=== PATIENT | female | born 1990 | race Caucasian/White ===

== ENCOUNTER 2022-01-01 12:26 | Emergency (ER) | payer BC ==
--- OUTSIDE RECORDS SUMMARY | 2022-01-01 12:29 | XMS REPORT | Continuity of Care Document ---
:1990 Author Organization [facility] Address [address] [place] [address] Care Team Providers Name Role Phone Hector RENDON Attending Clinician Unavailable Taryn RENDON, T Attending Clinician Unavailable DAGOBERTO Attending Clinician Unavailable VIRGEN Attending Clinician Unavailable Tessy RENDON Attending Clinician Unavailable VIOLETA Attending Clinician Unavailable Doctor Unassigned, Name Attending Clinician Unavailable Payers Payer Name Policy Type Policy Number Effective Date Expiration Date S ource Problems Condition Condition Condition Status Onset Resolution Last Treating Co mments Source Name Details Category Date Date Treatment Clinician Date No known No known Disease Unive rs active active ity of problems problems [facility] Allergies, Adverse Reactions, Alerts Allergy Allergy Status Severity Reaction(s) Onset Inactive Treating Comm ents Source Name Type Date Date Clinician NO KNOWN Drug Active Univers ALLERGIE Class ity of S [facility] Social History Social Habit Start Date Stop Date Quantity Comments Source Exposure to Not sure [facility] SARS-CoV-2 (event) [facility] Tobacco use and 2021-01-28 2021-01-28 Never used [facility] exposure 00:00:00 00:00:00 [facility] Sex Ass[birth year] At [birth year] [facility] 00:00:00 00:00:00 [facility] Smoking Status Start Date Stop Date Source Unknown if ever smoked [facility] Former smoker 2021-01-28 00:00:00 2021-01-28 00:00:00 [facility] Medications Ordered Filled Start Stop Current Ordering Indication Dosage Frequency Signature Comments Components Source Medication Medication Date Date Medication? Clinician (SIG) Name Name guaiFENesin Yes [id number] 400mg Take 1 Univers 400 mg 8-20 tablet by ity of tablet 00:00: mouth [place] 00 every 4 Medical (four) Branch hours as needed for Cough. benzonatate Yes [id number] 200mg Take 2 Univers 100 mg 8-20 capsules [place] of capsule [place]:00[place] ([place] Branch daily as needed for Cough. guaiFENesin 0 Yes [id number] 400mg Take 1 Univers 400 mg 8-20 tablet by ity of tablet 00:00: mouth [place] 00 every 4 Medical (four) Branch hours as needed for Cough. benzonatate 0 Yes [id number] 200mg Take 2 Univers 100 mg 8-20 capsules [place] of capsule 00:00[place] (two[place] Medical times Branch daily as needed for Cough. albuterol 0 Yes [id number] 2{puff} Inhale 2 Univers 90 8-18 Puffs ity of mcg/actuati 00:00: every 6 [place] as on inhaler 00 (six) Medical hours as Branch needed for Wheezing or Shortness of Breath. albuterol 0 Yes [id number] 2{puff} Inhale 2 Univers 90 8-18 Puffs ity of mcg/actuati 00:00: every 6 Bill as on inhaler 00 (six) Medical hours as Branch needed for Wheezing or Shortness of Breath. methylPREDN 0 Yes [id number] Take by Univers ISolone 8-17 mouth ity of (MEDROL, 00:00: SEE-INSTRU [place] as IHSAN,) 4 mg 00 CTIONS. Medica l tablets follow Branch package directions methylPREDN 2020-0 Yes [id number] Take by Univers ISolone 8-17 mouth ity of (MEDROL, 00:00: SEE-INSTRU [place] as IHSAN,) 4 mg 00 CTIONS. Medica l tablets follow Branch package directions azithromyci 0 Yes Univer s n 250 mg 8-17 ity of tablet 00:00: [place] 00 Medical Branch methylPREDN 2020-0 Yes [id number] Take by Univers ISolone 8-17 mouth ity of (MEDROL, 00:00: SEE-INSTRU Bill as IHSAN,) 4 mg 00 CTIONS. Medica l tablets follow Branch package directions azithromyci 0 Yes Univer s n 250 mg 8-17 ity of tablet 00:00: [place] 00 Medical Branch bromphenira 2020-0 2020- No [id number] 5mL Take 5 mL Univers mine-pseudo 8-17 08-28 by mouth 4 i ty of ephedrine-D 00:00: 04:59 (four) Bill as M (BROMFED 00 :00 times Medical DM) 2-30-10 daily as Bran ch mg/5 mL needed for syrup Congestion /Allergies or Cough for up to 10 days. Procedures Procedure Date / Time Performed Performing Clinician [facility] ASSIGNMENT OF BENEFITS 2021-01-25 14:36:32 Doctor Unassigned, No [facility] Encounters Start End Encounter Admission Attending Care Care Encounter Source Date/Time Date/Time Type Type Clinicians Facility Department ID 2021-02-01 2021-02-01 Letter Payton Young [id number] Univers 00:00:00 00:00:00 (Out) ELIF [id number] it [facility] [id number] Bill as [phone] [address] 2021-02-01 2021-02-01 Letter ARIELLE Centeno [id number] Univers 00:00:00 00:00:00 (Out) Rofarhat ASENCIO [id number] it y [facility] [id number] Bill as [phone] [address] 2021-01-31 2021-01-31 Outpatient [facility] [id number] Univers 13:00:00 13:00:00 [id number] [facility] 2021-01-31 2021-01-31 [facility] [id number] Univers 13:00:00 13:00:00 LEONID [facility] 2021-01-28 2021-01-28 Outpatient R [facility] [id number] Univers 09:00:00 09:00:00 [id number] [facility] 2021-01-28 2021-01-28 [facility] [id number] Univers 09:00:00 09:00:00 LEONID [facility] 2021-01-26 2021-01-26 Outpatient R [facility] [id number] Univers 17:00:00 17:00:00 [id number] y [facility] 2021-01-26 2021-01-26 Outpatient R VIRGEN [facility] [id number] Univers 17:00:00 17:00:00 BARRYSUNDARPadmini ity [facility] 2021-01-26 2021-01-26 Telephone ARIELLE Still [id number] Univers 00:00:00 00:00:00 Olga ORDAZY [id number] it y of [facility] [id number] Bill as [phone] [place] [id number] Branch 2021-01-25 2021-01-25 Out[facility] [id number] Univers 19:40:00 19:40:00 ELI salas [facility] 2021-01-25 2021-01-25 Orders Doctor ARIELLE [id number] Univers 00:00:00 00:00:00 Only Unassigned, ELIF [id number] ity of [place] [facility] [id number] Bill as [phone] [address] Results This patient has no known results.
[2022-01-01 13:11] LABS: Urine Blood Negative (Negative); Urine Glucose Negative (Negative); Urine Protein Negative (Negative); Urine Specific Gravity 1.015 (1.005-1.030); Urine pH 6.5 (5.0-7.0)
[2022-01-01] MEDS ORDERED: NA CHLORIDE 0.9% 1,000 ML ONE (13:26)
[2022-01-01] MEDS ORDERED: ACETAMINOPHEN 500 MG TAB ONE (13:26)
[2022-01-01 13:30] LABS: Urine Bacteria None Seen /HPF (<20); Urine RBC None Seen /HPF (None Seen)
[2022-01-01 13:30] LABS: Absolute Lymphocytes (CBC) 1.5 K/uL (0.7-4.9); Hematocrit 36.5 % (36.0-45.0); Lymphocytes % 21.9 % (15.3-44.8); MCV 93.3 fL (80-100); MPV 9.5 fL (7.6-11.3); RBC Red Blood Cell Count 3.92 M/uL (3.86-4.86)
[2022-01-01 13:56] LABS: Urine Specific Gravity/Preg 1.015 (1.005-1.030)
[2022-01-01 14:03] LABS: Potassium 3.7 mmol/L (3.5-5.1)
--- NOTE | 2022-01-01 15:12 | RAD REPORT ---
EXAM DESCRIPTION: US - OB Limited - 01/01/2022 2:56 pm CLINICAL HISTORY: ABD CRAMPING, age. COMPARISON: <Comparisons> FINDINGS: A single cephalic presenting gestation is identified. Heart rate normal. measurements are as follows: AC:12.5 Centimeters 18 week 1 day HL:2.5 Centimeters 17 week 5 day FL:2.3 Centimeters 16 week 5 day The estimated gestational age (EGA) is 17 week 3 day with an ALEKSANDER of06/08/2022. The placenta is anterior. No placenta previa. The maternal adnexa show no worrisome findings. The ovaries were not visualized. IMPRESSION: Single, cephalic gestation with an EGA of 17 week 3 day and an ALEKSANDER of the 06/08/2022.
--- NOTE | 2022-01-01 15:22 | EDPHYS ---
Physician Documentation [facility] Name: Viki Alexander Age: 31 yrs Sex: Female : 1990 Arrival Date: 01/01/2022 Time: 12:27 Bed 19 Private MD: ED Physician Barbi Washington HPI: 01/01 13:05 This 31 yrs old Female presents to ER via Ambulatory with complaints of Abdominal Pain, cp Abdominal Cramping - 17 wks preg. Historical: - Allergies: 12:42 No Known Allergies; ap3 - Home Meds: 12:42 None [Active]; ap3 - PMHx: 12:42 None; ap3 - PSHx: 12:42 None; ap3 - Immunization history:: Client reports having NOT received the Covid vaccine. - Social history:: Smoking status: Patient denies any tobacco usage or history of. ROS: 13:10 Constitutional: Negative for body aches, chills, fever, poor PO intake. cp 13:10 Eyes: Negative for injury, pain, redness, and discharge. cp 13:10 Cardiovascular: Negative for chest pain, palpitations. 13:10 Respiratory: Negative for cough, shortness of breath, wheezing. 13:10 Abdomen/GI: Positive for abdominal pain, of the left lower quadrant and right lower quadrant and suprapubic area, Negative for vomiting, diarrhea, constipation. 13:10 Back: Negative for pain at rest, pain with movement. 13:10 : Negative for urinary symptoms, vaginal bleeding, vaginal discharge. 13:10 Neuro: Negative for altered mental status, dizziness, headache, weakness. 13:10 All other systems are negative. Exam: 13:15 Constitutional: The patient appears in no acute distress, alert, awake, non-toxic, well cp developed, well nourished. 13:15 Head/Face: Normocephalic, atraumatic. cp 13:15 Eyes: Periorbital structures: appear normal, Conjunctiva: normal, no exudate, no injection, Sclera: no appreciated abnormality, Lids and lashes: appear normal, bilaterally. 13:15 ENT: External ear(s): are unremarkable, Nose: is normal, Mouth: Lips: moist, Oral mucosa: moist, Posterior pharynx: Airway: no evidence of obstruction, patent. 13:15 Chest/axilla: Inspection: normal. 13:15 Cardiovascular: Rate: normal, Rhythm: regular. 13:15 Respiratory: the patient does not display signs of respiratory distress, Respirations: normal, no use of accessory muscles, no retractions, labored breathing, is not present, Breath sounds: are clear throughout, no decreased breath sounds, no stridor, no wheezing. 13:15 Abdomen/GI: Inspection: abdomen appears normal, Bowel sounds: active, all quadrants, Palpation: soft, in all quadrants, moderate abdominal tenderness, in the suprapubic area, right lower quadrant and left lower quadrant, rebound tenderness, is not appreciated, involuntary guarding, is not appreciated. 13:15 Back: pain, is absent, ROM is normal. 13:15 Skin: cellulitis, is not appreciated, no rash present. 13:15 Neuro: Orientation: to person, place \T\ time. Mentation: is normal. Vital Signs: 12:39 BP 110 / 80; Pulse 84; Resp 17; Temp 97.9; Pulse Ox 100% ; Weight 61.69 kg; Height 5 ap3 ft. 4 in. (162.56 cm); 14:00 BP 115 / 74; Pulse 83; Resp 16; Pulse Ox 99% ; bp 15:39 BP 113 / 79; Pulse 79; Resp 17; Pulse Ox 100% ; bp 12:39 Body Mass Index 23.34 (61.69 kg, 162.56 cm) ap3 MDM: 12:45 Patient medically screened. 15:20 Data reviewed: vital signs, nurses notes, lab test result(s), radiologic studies, cp ultrasound. 15:20 Counseling: I had a detailed discussion with the patient and/or guardian regarding: the cp historical points, exam findings, and any diagnostic results supporting the discharge/admit diagnosis, lab results, radiology results, to return to the emergency department if symptoms worsen or persist or if there are any questions or concerns that arise at home. Response to treatment: the patient's symptoms have markedly improved after treatment, and as a result, I will discharge patient. 01/01 12:58 Order name: Abo/rh Typing; Complete Time: 14:04 01/01 14:04 Interpretation: Reviewed. 01/01 12:58 Order name: Basic Metabolic Panel; Complete Time: 14:04 01/01 14:04 Interpretation: Normal except: CRE 0.52. 01/01 12:58 Order name: CBC with Diff; Complete Time: 14:04 cp 01/01 14:05 Interpretation: Reviewed. 01/01 12:58 Order name: Quantitative Hcg; Complete Time: 14:04 cp 01/01 14:04 Interpretation: Abnormal: HCGQ 8468. 01/01 12:58 Order name: Urine Microscopic Only; Complete Time: 14:04 cp 01/01 15:09 Interpretation: Reviewed. 01/01 13:11 Order name: Urine Dipstick-Ancillary; Complete Time: 14:04 EDMS 01/01 15:09 Interpretation: Reviewed. 01/01 12:58 Order name: IV Saline Lock; Complete Time: 13:22 cp 01/01 12:58 Order name: Labs collected and sent; Complete Time: 13:02 cp 01/01 12:58 Order name: NPO; Complete Time: 13:02 cp 01/01 13:09 Order name: US OB Limited; Complete Time: 15:17 cp 01/01 13:15 Order name: Urine --Ancillary (enter results); Complete Time: 14:04 eb 01/01 14:04 Interpretation: Reviewed. 01/01 12:58 Order name: Urine Dipstick-Ancillary (obtain specimen); Complete Time: 13:11 cp 01/01 12:58 Order name: Urine Test (obtain specimen); Complete Time: 13:11 cp Administered Medications: 13:20 Drug: Tylenol 1000 mg Route: PO; eh3 15:40 Follow up: Response: No adverse reaction bp 13:20 Drug: NS 0.9% 500 ml Route: IV; Rate: bolus; Site: right antecubital; eh3 15:40 Follow up: IV Status: Completed infusion; IV Intake: 500ml bp 13:20 Drug: NS 0.9% 500 ml Route: IV; Rate: 125 ml/hr; Site: right antecubital; eh3 15:40 Follow up: IV Status: Completed infusion; IV Intake: 500ml bp Disposition Summary: 01/01/22 15:22 Discharge Ordered Location: Home cp Problem: new cp Symptoms: have improved cp Condition: Stable cp Diagnosis - related conditions, unspecified, second trimester cp Followup: cp - With: Private Physician - When: 1 week - Reason: Recheck today's complaints Discharge Instructions: - Discharge Summary Sheet cp - Abdominal Pain During cp - Second Trimester of cp Forms: - Medication Reconciliation Form cp - Thank You Letter cp - Antibiotic Education cp - Prescription Opioid Use cp Signatures: Dispatcher [employer] EDMS Ra Hernandez PA PA cp Prokisch, Amanda, RN RN ap3 Tanya Martins 3 Jose Berger RN bp
--- NOTE | 2022-01-01 15:22 | ER ---
Nurse's Notes [facility] Name: Viki Alexander Age: 31 yrs Sex: Female : 1990 Arrival Date: 01/01/2022 Time: 12:27 Bed 19 Private MD: Diagnosis: related conditions, unspecified, second trimester Presentation: 01/01 12:39 Chief complaint: Patient states: she has been having low abdominal pain intermittently ap3 for the last 3 days. Patient states that laying down made the pain feel a little better yesterday. Patient reports a heavy feeling in her abdomen. Coronavirus screen: At this time, the client does not indicate any symptoms associated with coronavirus-19. Ebola Screen: No symptoms or risks identified at this time. Initial Sepsis Screen: Does the patient meet any 2 criteria? No. Patient's initial sepsis screen is negative. Does the patient have a suspected source of infection?. 12:39 Method Of Arrival: Ambulatory ap3 12:41 Risk Assessment: Do you want to hurt yourself or someone else? Patient reports no ap3 desire to harm self or others. Onset of symptoms was December 29, 2021. 12:41 Acuity: ZEINA 3 ap3 Triage Assessment: 12:42 General: Appears uncomfortable, Behavior is calm, cooperative. Pain: Complains of pain ap3 in suprapubic area, right lower quadrant and left lower quadrant Pain currently is 0 out of 10 on a pain scale. at worst was 5 out of 10 on a pain scale. Is intermittent. Neuro: Level of Consciousness is awake, alert, obeys commands, Oriented to person, place, time. Cardiovascular: Patient's skin is warm and dry. Respiratory: Airway is patent Respiratory effort is even, unlabored. GI: Patient currently denies diarrhea, nausea, vomiting. Historical: - Allergies: 12:42 No Known Allergies; ap3 - Home Meds: 12:42 None [Active]; ap3 - PMHx: 12:42 None; ap3 - PSHx: 12:42 None; ap3 - Immunization history:: Client reports having NOT received the Covid vaccine. - Social history:: Smoking status: Patient denies any tobacco usage or history of. Screenin:11 Abuse screen: Denies threats or abuse. Denies injuries from another. Nutritional eh3 screening: No deficits noted. Tuberculosis screening: No symptoms or risk factors identified. Fall Risk None identified. Assessment: 12:45 General: SEE TRIAGE NOTE. eh3 13:10 Reassessment: PT REFUSING PIV, PROVIDER NOTIFIED. eh3 15:37 Reassessment: PT D/C HOME AMBULATORY WITH FAMILY, DX WITH RELATED CONDITION. bp Vital Signs: 12:39 BP 110 / 80; Pulse 84; Resp 17; Temp 97.9; Pulse Ox 100% ; Weight 61.69 kg; Height 5 ap3 ft. 4 in. (162.56 cm); 14:00 BP 115 / 74; Pulse 83; Resp 16; Pulse Ox 99% ; bp 15:39 BP 113 / 79; Pulse 79; Resp 17; Pulse Ox 100% ; bp 12:39 Body Mass Index 23.34 (61.69 kg, 162.56 cm) ap3 ED Course: 12:27 Patient arrived in ED. as 12:28 Ra Hernandez PA is PHCP. cp 12:28 Barbi Washington is Attending Physician. cp 12:41 Triage completed. ap3 12:44 Arm band placed on left wrist. ap3 12:45 Tanya Martins is Primary Nurse. eh3 12:45 Patient has correct armband on for positive identification. Bed in low position. Call eh3 light in reach. Side rails up X2. 13:22 Inserted saline lock: 20 gauge in right antecubital area, using aseptic technique. eh3 Blood collected. 14:58 US OB Limited In Process Unspecified. EDMS 15:23 Primary Nurse role handed off by Tanya Martins bp 15:23 Jose Berger, RN is Primary Nurse. bp 15:38 No provider procedures requiring assistance completed. IV discontinued, intact, bp bleeding controlled, No redness/swelling at site. Pressure dressing applied. Administered Medications: 13:20 Drug: Tylenol 1000 mg Route: PO; eh3 15:40 Follow up: Response: No adverse reaction bp 13:20 Drug: NS 0.9% 500 ml Route: IV; Rate: bolus; Site: right antecubital; eh3 15:40 Follow up: IV Status: Completed infusion; IV Intake: 500ml bp 13:20 Drug: NS 0.9% 500 ml Route: IV; Rate: 125 ml/hr; Site: right antecubital; eh3 15:40 Follow up: IV Status: Completed infusion; IV Intake: 500ml bp Medication: 15:39 VIS not applicable for this client. bp Intake: 15:40 IV: 500ml; Total: 500ml. bp 15:40 IV: 500ml; Total: 1000ml. bp Outcome: 15:22 Discharge ordered by MD. cp 15:38 Discharged to home ambulatory. bp 15:38 Condition: stable 15:38 Discharge instructions given to patient, Instructed on discharge instructions, follow up and referral plans. Demonstrated understanding of instructions, follow-up care. 15:41 Patient left the ED. bp Signatures: Dispatcher [employer] EDMS Matilde Ewing Corey, PA PA cp Peltier, Brian, JUSTICE RN Serenity Rios RN RN [facility] Tanya Martins [facility]
[2022-01-01 15:52] VITALS: TEMP 97.9
[2022-01-01 15:55] VITALS: BP 113/79; O2SAT 100
== END 2022-01-01 15:41 | disposition home or self-care (01) ==
LOC: ER 12:26
DX: O26.892 Other specified pregnancy related conditions, second trimester (principal); Z3A.17 17 weeks gestation of pregnancy
CPT/HCPCS: 96361; 85025; 80048; 36415; 86900; 81025; 86901; 84702; 76815; 96360; 99284; J7030; 81003; 81015